=== PATIENT | female | born 1990 | race Caucasian/White ===

== ENCOUNTER 2023-02-10 10:46 | Emergency (ER) | payer MEDICAID ==
[~2023-02-10] VITALS: Ht 167.6 cm; Wt 97.5 kg
[2023-02-10 11:25] VITALS: BP 128/72; TEMP 98; O2SAT 100
[2023-02-10] MEDS ORDERED: IBUPROFEN 400 MG TABLET ONE (11:57)
[2023-02-10] MEDS ORDERED: IBUPROFEN 400 MG TABLET PO ONE (12:00)
== END 2023-02-10 13:33 | disposition home or self-care (01) ==
LOC: ER 10:46
DX: S93.401A Sprain of unspecified ligament of right ankle, initial encounter (principal); X50.1XXA Overexertion from prolonged static or awkward postures, initial encounter; Y93.01 Activity, walking, marching and hiking; Y92.89 Other specified places as the place of occurrence of the external cause; Y99.8 Other external cause status
CPT/HCPCS: 73610-TC; 73630-TC